=== PATIENT | male | born 1965 | race Caucasian/White ===

== ENCOUNTER → 2017-12-19 | Outpatient (CLI) | payer OTHER ==
--- NOTE | 2017-12-20 12:43 | PCVCIMAG ---
APPROVED REPORT Patient Location: Echo lab Room #: 2 Stress Nurse: Nicole Wiley RN Indications: Arrhythmia with exertion, History of A Fib ablation The patient exercised according to the PASCALE protocol for 14:04 mins; achieving a work level of 17.5 METS. The resting heart rate of 60bpm garry to a maximum heart rate of 226 bpm. This value represent 134 % of the maximal, age-predicted heart rate. The resting blood pressure of 129/85 mmHg, garry to a maximum blood pressure of 170/80 mmHg. The exercise test was stopped due to fatigue . Atrial fibrillation was induced at 14:00 minutes into the protocol. Recovery- PVCs seen in a bigemilal pattern for about 2 minutes exercise Conclusion #1 no production of chest pain or angina was elicited #2 there is evidence Of exercise induced atrial fib /SVT with a rate of 2:22 duration was relatively short-lived asymptomatic but aware of the change in heart rate #3 excellent exercise tolerance with an appropriate hemodynamic response. Recommendations and plan; patient is having increasing periods of exercise induced atrial fib he is status post ablation 14 years ago. We'll arrange follow-up with EP service for consideration of repeat ablation. Echo Doppler has been ordered
== END | disposition home or self-care (01) ==
LOC: PCVCIMAG 15:44
PROVIDERS: ATTEND Internal Medicine Cardiovascular Disease
DX: I48.91 Unspecified atrial fibrillation (principal)
CPT/HCPCS: 93017